=== PATIENT | female | born 1965 | race American Indian/Alaskan Native ===

== ENCOUNTER 2017-07-21 06:06 | Day surgery (SDC) | payer OTHER ==
[2017-07-21 06:17] VITALS: BMI 33.9
[2017-07-21] MEDS ORDERED: Sodium Chloride 0.9% 1,000 ML IV STA (06:23)
--- NOTE | 2017-07-21 06:34 | ED PDOC ---
Lower Extremity Pain/Injury Time Seen by Provider: 07/21/17 06:11 Chief Complaint (Nursing): Lower Extremity Problem/Injury Chief Complaint (Provider): Lower Extremity Problem History Per: Patient History/Exam Limitations: no limitations Onset/Duration Of Symptoms: Persistent (x3 months), Worse Since (x1 week) Current Symptoms Are (Timing): Still Present Additional Complaint(s): 52 year old female presents to ED with complaints of right knee pain x3 months and has a past medical history of arthritis and a right knee meniscal tear. Notes that pain has worsened in the last week, and was advised by orthopedist ( Dr. Dover) to present to the ED. Notes that at initial time of onset, pain was sharp, constant, and worse with bearing weight and ROM. PCP: Dr. Richard Past Medical History Reviewed: Historical Data, Nursing Documentation, Vital Signs Vital Signs: Last Vital Signs Temp 97.5 F L 07/21/17 06:17 Pulse 72 07/21/17 06:17 Resp 16 07/21/17 06:17 BP 143/90 07/21/17 06:17 Pulse Ox 100 07/21/17 06:17 - Medical History PMH: Arthritis - Surgical History Surgical History: No Surg Hx - Family History Family History: States: No Known Family Hx - Social History Current smoker - smoking cessation education provided: No Ex-Smoker (has not smoked in the last 12 months): No Alcohol: None Drugs: Denies - Home Medications Home Medications: Ambulatory Orders Medication Instructions Recorded Acetaminophen with Codeine 1 each PO Q4H PRN #20 tablet 07/21/17 [Tylenol with Codeine #3 Tablet] - Allergies Allergies/Adverse Reactions: Allergies Allergy/AdvReac Type Severity Reaction Status Date / Time No Known Allergies Allergy Verified 07/21/17 06:16 Review of Systems ROS Statement: Except As Marked, All Systems Reviewed And Found Negative Musculoskeletal: Positive for: Leg Pain ((+) right knee pain) Physical Exam - Reviewed Nursing Documentation Reviewed: Yes Vital Signs Reviewed: Yes - Physical Exam Appears: Positive for: Non-toxic, No Acute Distress Skin: Positive for: Normal Color, Warm, Dry Neck: Positive for: Normal Cardiovascular/Chest: Positive for: Regular Rate, Rhythm. Negative for: Murmur Respiratory: Positive for: Normal Breath Sounds. Negative for: Respiratory Distress Gastrointestinal/Abdominal: Positive for: Soft. Negative for: Tenderness Extremity: Positive for: Normal ROM (pain with passive and active ROM), Swelling (mild edema to right knee). Negative for: Deformity Neurologic/Psych: Positive for: Alert, Oriented. Negative for: Motor/Sensory Deficits - Laboratory Results Result Diagrams: 07/21/17 06:45 07/21/17 06:45 - ECG O2 Sat by Pulse Oximetry: 100 (RA) Pulse Ox Interpretation: Normal Medical Decision Making Medical Decision Makin Initial impression: right knee pain Initial plan: * EKG * Labs * UPreg * PTT/PT * CXR * NS IV * UA Case referred to Dr. Dover, who has asked that patient be admitted for arthroscopic procedure. Patient will be admitted under INPATIENT MED/SURG. Scribe Attestation: Documented by Kristin Brown acting as a scribe for Tomy Vieyra MD. Scribe Attestation: All medical record entries made by the Scribe were at my direction and personally dictated by me. I have reviewed the chart and agree that the record accurately reflects my personal performance of the history, physical exam, medical decision making, and the department course for this patient. I have also personally directed, reviewed, and agree with the discharge instructions and disposition. Disposition - Clinical Impression Clinical Impression: Knee injury, Derangement of medial meniscus of right knee - Patient ED Disposition Is Patient to be Admitted: Yes - Disposition Disposition Time: 06:30 Condition: FAIR - Pt Status Changed To: Hospital Disposition Of: Inpatient - Admit Certification Admit to Inpatient:: After my assessment, the patient will require hospitalization for at least two midnights. This is because of the severity of symptoms shown, intensity of services needed, and/or the medical risk in this patient being treated as an outpatient.
[2017-07-21 07:01] LABS: BASO # 0.1 K/uL (0.0-0.2); BASO % 1.3 % (0.0-2.0); EOS # 0.1 K/uL (0.0-0.7); EOS % 2.8 % (0.0-4.0); LYMPH # 2.7 K/uL (1.0-4.3); MEAN CELL VOLUME 78.6 fl (81.0-99.0); MEAN CORPUSCULAR HEMOGLOBIN 24.8 pg (27.0-31.0); MEAN CORPUSCULAR HGB CONC 31.6 g/dL (33.0-37.0); MONO # 0.5 K/uL (0.0-0.8); NEUT % 36.9 % (50.0-75.0); NRBC % 0.3 % (0.0-0.0); RBC 4.44 Mil/uL (3.80-5.20); RED CELL DISTRIBUTION WIDTH 15.6 % (11.5-14.5); WHITE BLOOD COUNT 5.3 K/uL (4.8-10.8)
[2017-07-21] MEDS ORDERED: MethylPREDNISolone Depo 40 mg/ml Inj ONE (07:09)
[2017-07-21] MEDS ORDERED: ceFAZolin IV 1 gm in Dextrose 2 GM/100 ML BAG IVPB ONE (07:10)
[2017-07-21] MEDS ORDERED: Lidocaine 1% Inj (20ml) ONE (07:10)
[2017-07-21] MEDS ORDERED: Bupivacaine 0.5% Inj(30mL) ONE (07:10)
[2017-07-21] MEDS ORDERED: EPINEPHrine 1 mg/ml (1:1000) Inj ONE (07:14)
[2017-07-21 07:22] LABS: PROTHROMBIN TIME 11.5 Seconds (9.8-13.1)
--- NOTE | 2017-07-21 07:22 | CP.PCM.HP ---
History of Present Illness - History of Present Illness History of Present Illness: Orthopedic evaluation Dr. Dover Right knee pain 52F with history of 3 months of right knee pain states that the pain is now much worse and presented to the ER. She says she has difficulty walking due to the pain. Denies fall/back pain/numbness/tingling/recent illness/CP/SOB. No history of bleeding problems/blood clots Present on Admission - Present on Admission Any Indicators Present on Admission: No Review of Systems - Review of Systems All systems: reviewed and no additional remarkable complaints except - Constitutional Constitutional: As Per HPI - Cardiovascular Cardiovascular: As Per HPI - Respiratory Respiratory: As Per HPI - Musculoskeletal Musculoskeletal: As Per HPI - Integumentary Integumentary: As Per HPI - Neurological Neurological: As Per HPI Past Patient History - Past Medical History & Family History Past Medical History?: No Past Family History: Reviewed and not pertinent - Past Social History Smoking Status: Never Smoked - MUSCULOSKELETAL/RHEUMATOLOGICAL Hx Arthritis: Yes - PSYCHIATRIC Hx Substance Use: No - SURGICAL HISTORY Hx Arthroscopy: Yes (Left knee) Hx Orthopedic Surgery: Yes (Left knee arthroscopy) - ANESTHESIA Hx Anesthesia: Yes Hx Anesthesia Reactions: No Meds Allergies/Adverse Reactions: Allergies Allergy/AdvReac Type Severity Reaction Status Date / Time No Known Allergies Allergy Verified 07/21/17 06:16 Physical Exam - Constitutional Appears: Well, No Acute Distress - Head Exam Head Exam: ATRAUMATIC - Expanded Lower Extremities Exam Right Hip exam: full ROM Lower Leg Exam: tenderness (mild effusion, no erythema, pain with ROM) Ankle exam: FULL ROM, NORMAL INSPECTION Neuro vacular tendon exam: no vascular compromise (+DP/PT pulses, calves sfot NT neg homans) - Neurological Exam Neurological exam: Alert, Oriented x3 - Psychiatric Exam Psychiatric exam: Normal Affect, Normal Mood - Skin Skin Exam: Dry, Intact, Normal Color, Warm Results - Vital Signs Recent Vital Signs: Last Vital Signs Temp 97.5 F L 07/21/17 06:17 Pulse 72 07/21/17 06:17 Resp 16 07/21/17 06:17 BP 143/90 07/21/17 06:17 Pulse Ox 100 07/21/17 06:41 - Labs Result Diagrams: 07/21/17 06:45 Labs: Laboratory Results - last 24 hr 01/04/18 06:45 WBC 5.3 RBC 4.44 Hgb 11.0 L Hct 34.9 MCV 78.6 L MCH 24.8 L MCHC 31.6 L RDW 15.6 H Plt Count 168 MPV 11.0 Neut % (Auto) 36.9 L Lymph % (Auto) 50.0 H [place] % (Auto) 9.0 Eos % (Auto) 2.8 Baso % (Auto) 1.3 Neut # 2.0 Lymph # 2.7 [place] # 0.5 Eos # 0.1 Baso # 0.1 - Impressions Impression: MRI at outside facility, report on chart. States posterior horn medial meniscal tear, DJD severe at PF compartment Assessment & Plan (1) Derangement of medial meniscus of right knee Assessment and Plan: NPO for right knee arthroscopy [place] [employer] patient report reviewed, no CDS. Patient counseled on the risks of addiction, physical or psychological dependence, and overdose associated with opioid drugs and the danger of taking opioid drugs with alcohol and other central nervous system depressants, and cautioned patient on storage and disposal. Status: Acute (2) Primary osteoarthritis of right knee Status: Acute
[2017-07-21 07:26] LABS: PARTIAL THROMBOPLASTIN TIME 30.3 Seconds (25.6-37.1)
[2017-07-21 07:33] LABS: SQUAMOUS EPITHIAL 16 /hpf (0-5); URINE BACTERIA RARE (<OCC); URINE BILIRUBIN NEGATIVE (NEGATIVE); URINE BLOOD LARGE (NEGATIVE); URINE CLARITY CLOUDY (Clear); URINE COLOR YELLOW (YELLOW); URINE GLUCOSE (UA) NEG (Normal); URINE LEUKOCYTE ESTERASE NEG Leu/uL (Negative); URINE NITRATE NEGATIVE (NEGATIVE); URINE PROTEIN 100 mg/dL (NEGATIVE); URINE UROBILINOGEN 0.2-1.0 mg/dL (0.2-1.0)
[2017-07-21 07:38] LABS: ALB/GLOB RATIO 1.1 (1.0-2.1); ALBUMIN 3.9 g/dL (3.5-5.0); ALT/SGPT 32 U/L (9-52); AST/SGOT 18 U/L (14-36); BLOOD UREA NITROGEN 13 mg/dl (7-17); CALCIUM 8.9 mg/dL (8.4-10.2); GFR AFRICAN-AMERICAN > 60; GFR NON-AFRICAN AMERICAN > 60
[2017-07-21] MEDS ORDERED: Propofol 10 mg/ml Inj (20 ML) ONE ×3 (07:50→09:21)
[2017-07-21] MEDS ORDERED: Lidocaine 1% 5ml Abboject IV ONE (07:51)
[2017-07-21] MEDS ORDERED: Midazolam 2 MG/2 ML VIAL ONE (07:51)
[2017-07-21] MEDS ORDERED: Lactated Ringer's 1,000 ML IV ONE ×2 (08:16→09:30)
[2017-07-21] MEDS ORDERED: Dexamethasone 4 mg/1 ml ONE (08:36)
[2017-07-21] MEDS ORDERED: Succinylcholine 200 mg/10 ml Inj IV ONE (08:44)
[2017-07-21] MEDS ORDERED: ePHEDrine 50 mg/ml Inj ONE (08:55)
[2017-07-21] MEDS ORDERED: Lidocaine 1% Inj (20ml) IJ ONE (09:13)
[2017-07-21] MEDS ORDERED: Morphine 1 mg/ml preservative-free Inj(Duramorph) ONE (09:22)
[2017-07-21 09:31] LABS: FLUID TYPE SYNOVIAL FLUID
[2017-07-21] MEDS ORDERED: MethylPREDNISolone Depo 40 mg/ml Inj IM ONE (09:40)
[2017-07-21] MEDS ORDERED: Bupivacaine 0.5% 50 ML IJ ONE (09:40)
[2017-07-21] MEDS ORDERED: EPINEPHrine 1 mg/ml (1:1000) Inj IV ONE (09:40)
[2017-07-21] MEDS ORDERED: Morphine 1 mg/ml preservative-free Inj(Duramorph) IV ONE (09:40)
--- NOTE | 2017-07-21 09:51 | RAD ---
HISTORY: admit COMPARISON: No prior. FINDINGS: LUNGS: No active pulmonary disease. PLEURA: No significant pleural effusion identified, no pneumothorax apparent. CARDIOVASCULAR: Normal. OSSEOUS STRUCTURES: No significant abnormalities. VISUALIZED UPPER ABDOMEN: Normal. OTHER FINDINGS: None. IMPRESSION: No active disease.
--- NOTE | 2017-07-21 10:03 | PCM.SURG1 ---
Surgeon's Initial Post Op Note - Surgeon's Notes Surgeon: Stanislaw Ordnance Mechanic: ISSAC Santos Type of Anesthesia: General Endo Anesthesia Administered By: Dr Walt Gray Pre-Operative Diagnosis: Primary tricompartmental O/A R knee. Tense R suprapatella effusion. r/o meniscal tears Operative Findings: tricompartmental O/A R knee (primary). Tense suprapatella effusion. tear medial meniscus. tear lateral meniscus. severe tricomaprtmental synovitis Post-Operative Diagnosis: as above Operation Performed: arthroscopic abrasion arthroplasty/chondroplasty/ microfracture femoral trochlea. arthroscopic tricompartmental synovectomy. arthroscopic partial medial /partial lateral meniscectomy. intrarticular injection. applx knee immobilizer Specimen/Specimens Removed: cartilage/synovium/bone Estimated Blood Loss: EBL {In ML}: 10 Blood Products Given: N/A Drains Used: No Drains Post-Op Condition: Good Date of Surgery/Procedure: 07/21/17 Time of Surgery/Procedure: 09:15 (time iun room 8:16)
[2017-07-21] MEDS ORDERED: HYDROmorphone 0.5 mg/0.5 ml ISec IVP PRN (10:20)
[2017-07-21] MEDS ORDERED: Lactated Ringer's 1,000 ML IV SCH (10:30)
--- NOTE | 2017-07-21 10:43 | CARD ---
APPROVED REPORT EKG Measurement Heart [id number] <Conclusion> Normal sinus rhythm Minimal voltage criteria for LVH, may be normal variant Nonspecific T wave abnormality Abnormal ECG
[2017-07-21 11:07] LABS: SF GROSS APPEARANCE CLOUDY (CLEAR); SYNOVIAL FLUID COMMENT YELLOW; SYNOVIAL FLUID MONO/MACROPHAGE 5 % (0-0)
[2017-07-21 13:05] VITALS: RESP 18; TEMP 98
[2017-07-21 16:28] VITALS: BP 130/70; PULSE 85
[2017-07-22 05:03] VITALS: O2SAT 100
--- NOTE | 2017-07-25 13:47 | OP ---
PROCEDURE DATE: 07/21/2017 PREOPERATIVE DIAGNOSIS: 1. Primary tricompartmental osteoarthritis of the right knee. 2. Tense right suprapatellar effusion, rule out meniscal tears. POSTOPERATIVE DIAGNOSES: 1. Primary tricompartmental osteoarthritis of the right knee with severe chondral damage of the femoral trochlea. 2. Tear of medial meniscus. 3. Tear of lateral meniscus. 4. Severe tricompartmental synovitis. OPERATIVE FINDINGS: 1. Tricompartmental osteoarthritis of the right knee, chondral defect femoral trochlea. 2. Tense suprapatellar effusion. 3. Tear of medial meniscus. 4. Tear of lateral meniscus. 5. Severe tricompartmental synovitis. PROCEDURES: 1. Arthroscopic abrasion arthroplasty with chondroplasty, microfracture femoral trochlea. 2. Arthroscopic partial tricompartmental synovectomy. 3. Arthroscopic partial medial meniscectomy, arthroscopic partial lateral meniscectomy, intra-articular injection, and application of knee immobilizer. SURGEON: Srikanth Dover MD. SURVEY ENGINEER: Claudine Cano, certified registered nursing optometry assistant. TYPE OF ANESTHESIA: General endotracheal anesthesia. ANESTHESIA ADMINISTERED BY: Walt Gray MD. SPECIMENS REMOVED: Cartilage, synovium, and bone. ESTIMATED BLOOD LOSS: 10 mL. BLOOD PRODUCTS GIVEN: None. DRAINS: None. POSTOPERATIVE CONDITION: Stable. INCISION TIME: 9:15 a.m. TIME IN THE ROOM: 0816. OPERATIVE INDICATIONS: Godfrey Breaux is a 52-year-old woman who was involved in healthcare, who was well known to my practice, who presents with persistent knee pain over the past several months. The patient had undergone weight gain and presented to the emergency room as a an emergency with tense suprapatellar effusion of the right knee with inability to ambulate at all. The possibility of locked knee was entertained. The patient stabilized in the emergency department, admitted, and stabilization and medical clearance obtained. The patient was taken to surgery. Pros, cons, risks, and benefits of arthroscopic surgery were discussed. The possibility of mechanical failure, infection, thromboembolic disease, secondary or tertiary surgery was discussed. The patient can no longer withstand the discomfort. The patient presents with persistent discomfort, pain and restricted range of motion of the right knee. Again, the concept that this patient in all medical probability will require knee replacement arthroplasty in the future was discussed. The patient can no longer withstand the discomfort and wished the surgery be accomplished. DESCRIPTION OF PROCEDURE: After having obtained informed consent in the above fashion; after having identified side, site, and procedure and critical pause/time-out; after the satisfactory induction of the anesthetic, the patient identified as Godfrey Breaux in the supine position with all bony prominences well padded. The right lower extremity was prepped and free draped in the usual fashion for lower extremity surgery. The tourniquet had been applied, but was not yet inflated. The knee palmer was employed as well. After exsanguinating the limb using a 6-inch Esmarch bandage, tourniquet, which had been applied, was inflated to 350 mmHg. At this point in time, from an anterolateral portal, one thumb's breadth inferior to the lateral aspect of the patella, the spinal needle was introduced and approximately 60 mL of clear straw-colored fluid were obtained. There was no evidence of sepsis, but aerobic, anaerobic, AFB, and fungal cultures were sent anyway as well as stat Gram stain for number of white cells per high-power field and possible bacteria. At this point, triangulation was accomplished using #18 spinal needle at one thumb's breadth medial to the inferior pole of the patella using #11 blade followed by spreading. Introduction of blunt trocar with the arthroscope anterolaterally, a careful partial tricompartmental synovectomy was accomplished. The patient had an exuberant inflammatory synovitis secondary to the arthritic change, although the anterior cruciate ligament was found to be intact, there was found to be evidence of severe denudation of the articular cartilage of the femoral trochlea. The arthroscope was transferred anteromedially and with the surgeon exerting a gentle valgus stress so as not to injure the medial collateral ligament, the posterior aspect of the medial meniscus was exposed . This having been accomplished, the medial meniscus was found to be torn, the inner free aspect was torn. Using a combination of the straight biting basket forceps and side biting basket forceps, a partial medial meniscectomy was accomplished. The entire extent of the meniscus was probed as well as the meniscal capsular junction. There was no significant medial meniscal separation. With the arthroscope transferred now anterolaterally with the knee in [id number] position, there was found to be a tear of the inner free edge of the lateral meniscus. Using a combination of straight biting basket forceps and side biting basket forceps, a partial lateral meniscectomy was accomplished. The arthroscope was transferred back anteromedially and with the surgeon now exerting a gentle valgus stress again so as not to injure the medial collateral ligament, the inner free edge of the medial meniscus was smoothed using the Betty SERFAS wand at a very low thermal setting. Partial medial meniscectomy having been accomplished, careful partial tricompartmental synovectomy having been accomplished, bleeding points controlled with the Ewing SERFAS. With the arthroscope anterolaterally, the lateral meniscectomy was completed using a combination of 3.4 mm Dyonics suction punch and right biting basket forceps. The inner free edge was smoothed using the using the Betty SERFAS wand. Partial tricompartmental synovectomy was completed. Bleeding points were controlled with the wand. This having been accomplished, a careful partial tricompartmental synovectomy was completed and attention was now turned to the medial femoral condyle and the femoral trochlea. The femoral trochlea was found to be denuded down through articular cartilage to the subchondral bone plate. With the knee at approximately 30 degrees of extension, a careful mechanical chondroplasty and abrasion arthroplasty was accomplished in that region of the femoral trochlea. This was accomplished using the arthroscopic shaver and then accomplished with the arthroscopic pick so that an abrasion arthroplasty and microfracture of the femoral trochlea was accomplished. The pick was used to create a honeycomb-type lattice to allow and hopefully transition to fibrocartilage. Microfracture having been accomplished, the loose fragments were debrided using the 5.2 mm Dyonics suction punch and the arthroscopic shaver. Abrasion chondroplasty of medial femoral condyle was accomplished as well. This having been accomplished, the wound was thoroughly irrigated. Careful partial tricompartmental synovectomy was completed using the Ewing SERFAS wand. This having been accomplished, tricompartmental synovectomy was completed. The loose cartilage fragments were denuded and the honeycomb-type lattice was affected using the arthroscopic pick. This having been accomplished, the wound was thoroughly irrigated. Tricompartmental synovectomy was completed. Medial and lateral meniscectomies were accomplished. The wound was thoroughly irrigated. Closure of the portals was with interrupted Vicryl and nylon. Intra-articular injection of Marcaine, Duramorph, and Depo-Medrol was accomplished. Compression dressing and knee immobilizers applied. The patient was transferred from the operating table to the stretcher having tolerated the procedure well. Srikanth Dover MD
== END 2017-07-21 16:30 | disposition home or self-care (01) ==
LOC: H.ER 06:06 → UNDOADMOB 06:27 → H.ERHOLD 06:27 → INTOOBSV 06:27 → H.ER 07:36 → H.SDS 11:09
PROVIDERS: ATTEND Orthopaedic Surgery
DX: M17.11 Unilateral primary osteoarthritis, right knee (principal); M65.861 Other synovitis and tenosynovitis, right lower leg; M23.261 Derangement of other lateral meniscus due to old tear or injury, right knee; M23.231 Derangement of other medial meniscus due to old tear or injury, right knee; Z87.891 Personal history of nicotine dependence
CPT/HCPCS: 29876; 29879; 29880; 71045; 80053; 81003; 81025; 85025; 85610; 85730; 87015; 87070; 87075; 87101; 87116; 87206; 88305; 89051; 93005; 97116; 97161; 99283; G8978; G8979; G8980; J0171; J0330; J0690; J1030; J1100; J1885; J2250; J2270; J2405; J2704; J3010; J7030; J7040; J7120